=== PATIENT | male | born 1995 | race African-American/Black ===

== ENCOUNTER 2017-08-30 15:41 | Emergency (ER) | payer OTHER ==
[2017-08-30 16:07] VITALS: BP 133/75
--- NOTE | 2017-08-30 16:36 | UC ---
Complaint Male HPI - HPI Summary HPI Summary: 22 yo BM c/o right testicular discomfort after having sex last week , denies d/ c or dysuria, had ONE sex partner last week since August 18 after breaking up with his gf. Denies h/o any STD's - History of Current Complaint Chief Complaint: UCGU Stated Complaint: GROIN PAIN Time Seen by Provider: 08/30/17 16:18 Hx Obtained From: Patient Onset/Duration: Lasting Days Timing: Lasting Days Severity Initially: Mild Severity Currently: Moderate Pain Intensity: 5 - Allergies/Home Medications Allergies/Adverse Reactions: Allergies Allergy/AdvReac Type Severity Reaction Status Date / Time No Known Allergies Allergy Unknown Verified 08/30/17 17:22 Reaction Details PMH/Surg Hx/FS Hx/Imm Hx - Additional Past Medical History Additional PMH: none Previously Healthy: Yes - Surgical History Surgical History: None - Social History Alcohol Use: Occasionally Substance Use Type: Marijuana Substance Use Comment - Amount & Last Used: yesterday Smoking Status (MU): Never Smoked Tobacco Review of Systems Constitutional: Negative Skin: Negative Eyes: Negative ENT: Negative Respiratory: Negative Cardiovascular: Negative Gastrointestinal: Negative Genitourinary: Other - testicular pain Motor: Negative Neurovascular: Negative Musculoskeletal: Negative Neurological: Negative Psychological: Negative Is Patient Immunocompromised?: No All Other Systems Reviewed And Are Negative: Yes Physical Exam Triage Information Reviewed: Yes Appearance: No Pain Distress Vital Signs: Initial Vital Signs Temp 37.2 C 08/30/17 16:00 Pulse 67 08/30/17 16:00 Resp 18 08/30/17 16:00 BP 133/75 08/30/17 16:00 Pulse Ox 99 08/30/17 16:00 Eye Exam: Normal ENT Exam: Normal Dental Exam: Normal Neck exam: Normal Neck: Positive: 1 Respiratory Exam: Normal Cardiovascular Exam: Normal Abdominal Exam: Normal Musculoskeletal Exam: Normal Neurological Exam: Normal Psychological Exam: Normal Skin Exam: Normal - Additional Comments right testicular tenderness in upper pole, NON-reproducible on palpation Complaint Male Course/Dx - Course Course Of Treatment: possible epididymitis given pt's hx- will tx for GC / Chlamydia- IM ceftriaxone and PO azithro administered in UC, Doxy as outpt x 1 week. urine PCR pending - Differential Dx/Diagnosis Differential Diagnosis/HQI/PQRI: Epididymitis, Urinary Tract Infection Provider Diagnoses: testicular pain Discharge - Discharge Plan Condition: Stable Disposition: HOME Prescriptions: DOXYcycline CAP(*) [DOXYcycline 100MG CAP(*)] 100 mg PO BID 7 Days #14 cap Patient Education Materials: Epididymitis (ED), Testicle Pain (ED) [facility] - Additional Instructions: take antibiotics as directed
[2017-08-30] MEDS ORDERED: cefTRIAXone VIAL(*) 250 MG VIAL IM ONE (17:12)
[2017-08-30] MEDS ORDERED: Azithromycin TAB* 250 MG PO ONE (17:16)
[2017-08-30] MEDS ORDERED: Lidocaine 1% MPF* 2 ML VIAL ONE (17:29)
[2017-08-30] MEDS ORDERED: Lidocaine 1% MPF* 2 ML VIAL INJ ONE (17:31)
--- NOTE | 2017-08-31 16:04 | PN ---
Progress Note - Progress Note Date of Service: 08/31/17 Note: Patient STDF cx's returned negative, nurse to call patient to inform. -America Mcmullen PAC
== END 2017-08-30 18:00 | disposition home or self-care (01) ==
LOC: UCEAST 15:41
DX: N50.812 Left testicular pain (principal)
CPT/HCPCS: 81003; 87491; 87591; 96372; 99202; A9270-GY; G0463; J0696